=== PATIENT | male | born 1965 | race Caucasian/White ===

== ENCOUNTER 2016-12-11 09:22 | Inpatient (IN) | payer OTHER ==
[~2016-12-11] VITALS: Ht 180.3 cm; Wt 110.4 kg
--- NOTE | ~2016-12-11 | DS ---
Discharge Summary [facility] [address] [facility] [place]. [address] NAME: DAYSI DICKEY : 65 STATUS : DIS IN PAT#: [id number] AGE: 51 ADM/REG DATE : 12/11/16 MR#: [id number] REPORT SERV DATE: 12/16/16 DICTATED BY: CATHIE CESPEDES DATE: 12/16/16 REPORT STATUS : Draft TRANSCRIBED BY: MODL DATE: 12/16/16 ADMISSION DATE: 12/11/2016 DISCHARGE DATE: 12/16/2016 CONDITION ON DISCHARGE: Stable. DISPOSITION: Discharged to home. ADVICE ON DISCHARGE: To follow up with Dr. Gould within the next one to two weeks. DIAGNOSES ON DISCHARGE: 1. Submandibular abscess more towards the right side in the submandibular area in the sublingual area, status post incision and drainage, status post drain placement and subsequent removal of drain by Dr. Gould, the oral surgeon. 2. Poor dentition and poor oral hygiene with multiple dental caries, mostly secondary to tobacco abuse too - the patient has been advised to quit smoking. I have offered him nicotine patch, but the patient refuses nicotine patch, saying that he has no money to buy the nicotine patch at this time. 3. Other diagnoses in this patient also include type 2 diabetes mellitus and hypertension. BRIEF HOSPITAL COURSE: The patient is a 51-year-old male patient who was admitted with difficulty swallowing and severe pain, swelling, redness in the right side of the face and also in the submandibular area. The patient was admitted and given supportive treatment with IV fluids and started on IV antibiotics. As the patient is allergic to penicillin, he was started on IV Cleocin. Oral surgeon, Dr. Gould, was consulted. Dr. Gould performed an incision and drainage of the submandibular abscess and left the drain in place for about 24 to 48 hours before removing it. The patient has been doing well since. He continues to complain of another tooth that is bothering him on the right side, but this could be followed up as an outpatient per Dr. Gould. The patient will continue, however, to be on oral antibiotics. To keep the swelling down and to help him swallow, the patient has also been given pHisoHex mouthwash or Peridex mouthwash and also given Levaquin, and in addition to that, prednisone. Hence, the patient will be discharged home on tapering dose of prednisone, Levaquin for another week, Peridex mouthwash and advised to stop smoking. The patient wanted a prescription for Percocet pills and he states that he has a high tolerance for pain and request these particular medicines. I have given him a prescription for Percocet 5/325 one p.o. t.i.d. p.r.n. for severe pain only, #21 only, and no more. The patient is to follow up with Dr. Gould as an outpatient within the next one to two weeks. The most recent results I have on this gentleman is surgical culture of the wound that is showing growth in broth only of agglutination-negative Staphylococcus. Other than that, his CBC shows a WBC count of 20.6. Most likely, the leukocytosis is secondary to the prednisone and the Solu-Medrol that he received to decrease the swelling. This is because the patient Discharge Summary [address] [address] NAME: DAYSI DICKEY : 65 STATUS : DIS IN PAT#: [id number] AGE: 51 ADM/REG DATE : 12/11/16 MR#: [id number] REPORT SERV DATE: 12/16/16 DICTATED BY: CATHIE CESPEDES DATE: 12/16/16 REPORT STATUS : Draft TRANSCRIBED BY: BELA DATE: 12/16/16 does not appear toxic. He is afebrile and he is able to swallow, eat his regular food, and is clinically well and ambulatory. His hemoglobin and hematocrit are normal at 16.9 and 49.4, and platelet is normal at 175. Electrolyte profile shows normal electrolytes, normal BUN and creatinine. Blood glucose levels have come back high, partly because of the infection and also partly because of the steroid use to reduce the swelling. He will continue his home medications for this, however. The patient is being sent home on above medications including Levaquin for seven days; prednisone 20 mg a day for two days, 15 mg a day for two days, 10 mg a day for two days, 5 mg a day for two days, and then stop; Peridex mouthwash as mentioned above; and Percocet 5/325 one p.o. t.i.d. p.r.n. for pain, #21. The patient will resume Prinivil 20 mg p.o. b.i.d., aspirin 81 mg once a day, Glucophage 500 mg p.o. b.i.d., Neurontin 800 mg p.o. t.i.d., Novolin N 25 units subcutaneously every morning, NPH insulin 20 units at bedtime, HCTZ 25 mg once a day, metoprolol tartrate 50 mg p.o. b.i.d., Mevacor 40 mg p.o. q.h.s., and also his fish oil capsules. Hence, he is being discharged home in stable condition and I have spent about 35 to 40 minutes in coordinating discharge care of this patient including [id number] encounter and summarizing this discharge. RRA/BELA Cathie Cespedes M.D. / [id number] CC: Martha Short JOY A
--- NOTE | ~2016-12-11 | OP ---
Record Of Operation [facility] [address] [place]. [address] NAME: DAYSI DICKEY : 65 STATUS : ADM IN [facility]#: [id number] AGE: 51 ADM/REG DATE : 12/11/16 MR#: [id number] REPORT SERV DATE: 12/13/16 DICTATED BY: SANGEETHA ISBELL DATE: 12/12/16 REPORT STATUS : Draft TRANSCRIBED BY: MODL DATE: 12/12/16 DATE OF PROCEDURE: 12/12/2016 PREOPERATIVE DIAGNOSES: 1. Right facial cellulitis. 2. Carious teeth. POSTOPERATIVE DIAGNOSES: 1. Right facial cellulitis. 2. Carious teeth. PROCEDURES PERFORMED: 1. Incision and drainage of right submandibular space. 2. Incision and drainage of right sublingual space. 3. Extraction of teeth numbers #29 and #31. INDICATIONS: This is a 51-year-old male who was admitted to the hospitalist service two days ago and Oral Surgery Service was consulted for definitive treatment. PROCEDURE PERFORMED: After informed consent was given, the patient was taken to the [facility] where he underwent a general anesthetic via oral tracheal intubation. The patient was prepped and draped in a normal sterile fashion. For procedure of this type, approximately 10 mL of 0.5% Marcaine with 1:200,000 epinephrine was injected into the right posterior mandible as well as the right neck skin crease. A #15 blade was used to make an incision in a right neck skin crease. Dissection was carried out through this incision with hemostats where a moderate amount of purulent material was expressed. This material was cultured for Gram stain, aerobic and anaerobic cultures. This hemostat was then carried into the oral cavity through the sublingual space and a half-inch [place] drain was picked up and dragged back out through the neck incision. This [place] drain was then secured with 3-0 silk suture. The incision and drainage were also carried out at the submandibular space as well as the vestibular space. Teeth numbers #29 and #31 were extracted. Copious irrigation was used in the flap. An orogastric tube was placed in the stomach and removed to avoid any stomach contents. A moist large gauze was placed in the right side of the oral cavity. The patient was extubated in the operating room and taken to recovery room in stable condition. TALYA/MODL Sangeetha Isbell D.D.SKhushbu / [id number] CC: Manny Ventura M.D.
--- NOTE | ~2016-12-11 | HP ---
History And Physical [address] [place]. [address] NAME: DAYSI DICKEY : 65 STATUS : ADM IN [facility]#: [id number] AGE: 51 ADM/REG DATE : 12/11/16 MR#: [id number] REPORT SERV DATE: 12/11/16 DICTATED BY: MANNY VENTURA DATE: 12/11/16 REPORT STATUS : Draft TRANSCRIBED BY: BELA DATE: 12/11/16 DATE OF ADMISSION: 12/11/2016 CHIEF COMPLAINT: Pain in the right side of the mouth. HISTORY OF PRESENT ILLNESS: The patient is a 51-year-old white male, who presented to [facility], where he woke up this morning with significant pain in his right side of the mouth. He says, his tooth has been bothering him for the last three to four days. He has been having some sweats, but no fevers and last night when he went to bed, it was hurting some, but this morning he could hardly move his jaw, so he had to activate EMS and he came to the emergency room. In the ER, he was found to have submandibular abscess, so he was transferred to [facility], which I do not recall why, but after being evaluated at [facility], this patient is transferred here for oral surgery to operate on him for the right submandibular abscess. This patient denies any nausea or vomiting. He denies any chest pain. He has had difficulty swallowing just mainly because of his pain. He denies any shortness of breath. He has not had any abdominal pain, diarrhea, or other constitutional symptoms except sweating. REVIEW OF SYSTEMS: A 10-point review of systems is otherwise negative. PAST MEDICAL HISTORY: Significant for type 2 diabetes mellitus and hypertension. PAST SURGICAL HISTORY: Significant for right wrist surgery due to traumatic injury and left hip surgery due to traumatic injury in the past. ALLERGIES: ALLERGIES TO PENICILLIN. HOME MEDICATIONS: Include insulin, which the patient is unable to recall, lisinopril, and another type of medication. SOCIAL HISTORY: This patient smokes one pack per day for thirty plus years. No use of alcohol. No use of drugs. FAMILY HISTORY: Father of lung cancer. Mother with diabetes and stroke. PHYSICAL EXAMINATION: GENERAL: White male, sitting on the bed, appears to be in no obvious respiratory distress. He is awake, alert, and he is oriented. VITAL SIGNS: Blood pressure 171/87, temp is 98.4, pulse is 94, sats are 94, pulse is 73. HEENT: Head is normocephalic, atraumatic. Pupils are equal, round, and reactive to light. Extraocular muscles are intact. Sclerae anicteric. Conjunctivae normal. Oropharynx, there is poor dentition with some purulent material in the right lower jaw. There is significant swelling of the right lower mandible with tenderness and warmth. No other lesions in the oropharynx are noted. NECK: Supple. No jugular venous distention. There is shotty lymphadenopathy in the right History And Physical [address] [address] NAME: DAYSI DICKEY : 65 STATUS : ADM IN [facility]#: [id number] AGE: 51 ADM/REG DATE : 12/11/16 MR#: [id number] REPORT SERV DATE: 12/11/16 DICTATED BY: MANNY VENTURA DATE: 12/11/16 REPORT STATUS : Draft TRANSCRIBED BY: BELA DATE: 12/11/16 side of the neck. No carotid bruits are noted. HEART: Regular rate and rhythm. No murmurs, rubs, or gallops are heard. PMI not displaced. LUNGS: Clear to auscultation both anteriorly and posteriorly without rales, rhonchi, wheezing, or consolidation. ABDOMEN: Soft, nontender, good bowel sounds. No rebound or guarding. No organomegaly. EXTREMITIES: Without cyanosis, clubbing, or edema. NEUROLOGICAL: He is normal. No lab work has been sent from any of the transferring facilities. IMPRESSION: 1. Right-sided submandibular abscess. 2. Type 2 diabetes mellitus. 3. Hypertension. PLAN: The patient will be admitted. We will consult Oral Maxillofacial Surgery Dr. Gould. Place the patient on IV clindamycin, use a sliding scale, use IV hydralazine for blood pressure management and review home medications when available. The patient remains a full code. VERONICA/BELA Manny Ventura M.D. / [id number] CC: Manny Ventura M.D.
[2016-12-11] MEDS ORDERED: PRIN20 PO (17:27)
[2016-12-11] MEDS ORDERED: NOVOLIN N ×2 (17:29→17:31)
[2016-12-11] MEDS ORDERED: ASAB PO (17:29)
[2016-12-11] MEDS ORDERED: *UNABLE1 (17:30)
[2016-12-11] MEDS ORDERED: GLUCPH PO (17:34)
[2016-12-11] MEDS ORDERED: NEUR800 PO (19:02)
[2016-12-12 06:27] LABS: BASOPHILS 0.1 %; BASOPHILS ABSOLUTE 0.01 10/3/uL (0.0-0.16); EOSINOPHILS 0 %; HEMATOCRIT 44.4 % (40.0-51.0); HEMOGLOBIN 15.3 g/dL (13.6-17.8); IMMATURE GRANULOCYTES 0.3 %; IMMATURE GRANULOCYTES ABSOLUTE 0.04 10/3/uL (0.0-0.11); LYMPHOCYTES 5.2 %; LYMPHOCYTES ABSOLUTE 0.77 10/3/uL (0.67-4.30); MEAN CORPUS HGB CONC 34.5 g/dL (32.0-36.0); MEAN CORPUSCULAR HEMOGLOB 31.4 pg (26.0-34.0); MEAN PLATELET VOLUME 12.7 fL (9.2-13.0); MONOCYTES 11.2 %; MONOCYTES ABSOLUTE 1.66 10/3/uL (0.21-1.20); NEUTROPHILS 83.2 %; NEUTROPHILS ABSOLUTE 12.34 10/3/uL (2.02-8.40); PLATELET COUNT 95 10/3/uL (150-400); RBC DISTRIBUTION WIDTH 12.6 % (12.0-16.0); RED CELL COUNT 4.88 10/6/uL (4.7-6.1); WHITE BLOOD CELLS 14.8 10/3/uL (4.5-10.5)
[2016-12-12 06:30] LABS: MANUAL DIFF NO %
[2016-12-12 06:46] LABS: ALBUMIN 3.2 G/DL (3.5-5.0); BUN (BLOOD UREA NITROGEN) 14 MG/DL (6-23); CALCIUM, SERUM 8.7 MG/DL (8.5-10.4); CHLORIDE, SERUM 101 MMOL/L (96-112); CO2 (CARBON DIOXIDE) 26 MMOL/L (24-34); CREATININE 0.64 MG/DL (0.70-1.30); GFR AFRICAN AMERICAN 131 ML/MIN (>=60); GFR NON AFRICAN AMERICAN 113 ML/MIN (>=60); GLUCOSE, SERUM 198 MG/DL (60-99); POTASSIUM, SERUM 4.1 MMOL/L (3.5-5.3); SODIUM, SERUM 135 MMOL/L (135-148)
[2016-12-12] MEDS ORDERED: INSNOVN SC (12:22)
[2016-12-12] MEDS ORDERED: HUMULIN N1 ML SC (12:22)
[2016-12-12] MEDS ORDERED: HUMULIN R1 ML SC (12:25)
[2016-12-12] MEDS ORDERED: HCTZ25B PO (12:26)
[2016-12-12] MEDS ORDERED: LOP50 PO (12:26)
[2016-12-12] MEDS ORDERED: MEVACOR40 MG PO (12:27)
[2016-12-12] MEDS ORDERED: FISH-EPA1000 MG PO (12:27)
[2016-12-13 05:13] LABS: BASOPHILS 0 %; EOSINOPHILS 0 %; HEMATOCRIT 43.3 % (40.0-51.0); HEMOGLOBIN 14.3 g/dL (13.6-17.8); IMMATURE GRANULOCYTES 0.5 %; IMMATURE GRANULOCYTES ABSOLUTE 0.08 10/3/uL (0.0-0.11); LYMPHOCYTES 4.5 %; LYMPHOCYTES ABSOLUTE 0.77 10/3/uL (0.67-4.30); MEAN CORPUSCULAR HEMOGLOB 30.6 pg (26.0-34.0); MEAN CORPUSCULAR VOLUME 92.5 fL (80-100); MEAN PLATELET VOLUME 13.2 fL (9.2-13.0); MONOCYTES 6.3 %; MONOCYTES ABSOLUTE 1.07 10/3/uL (0.21-1.20); NEUTROPHILS 88.7 %; NEUTROPHILS ABSOLUTE 15.03 10/3/uL (2.02-8.40); PLATELET COUNT 106 10/3/uL (150-400); RBC DISTRIBUTION WIDTH 13.1 % (12.0-16.0); RED CELL COUNT 4.68 10/6/uL (4.7-6.1)
[2016-12-13 05:15] LABS: MANUAL DIFF NO %
[2016-12-13 05:21] LABS: BUN (BLOOD UREA NITROGEN) 17 MG/DL (6-23); CALCIUM, SERUM 8.4 MG/DL (8.5-10.4); CHLORIDE, SERUM 101 MMOL/L (96-112); CO2 (CARBON DIOXIDE) 29 MMOL/L (24-34); CREATININE 1.02 MG/DL (0.70-1.30); GFR AFRICAN AMERICAN 98 ML/MIN (>=60); GFR NON AFRICAN AMERICAN 85 ML/MIN (>=60); PHOSPHORUS, SERUM 2.6 MG/DL (2.5-4.5); SODIUM, SERUM 136 MMOL/L (135-148)
[2016-12-13 05:23] LABS: GLUCOSE, SERUM 243 MG/DL (60-99); POTASSIUM, SERUM 5.1 MMOL/L (3.5-5.3)
[2016-12-14 06:39] LABS: BASOPHILS 0.1 %; BASOPHILS ABSOLUTE 0.01 10/3/uL (0.0-0.16); EOSINOPHILS 0.1 %; EOSINOPHILS ABSOLUTE 0.02 10/3/uL (0.0-0.53); HEMATOCRIT 43.5 % (40.0-51.0); HEMOGLOBIN 14.7 g/dL (13.6-17.8); IMMATURE GRANULOCYTES 0.4 %; IMMATURE GRANULOCYTES ABSOLUTE 0.08 10/3/uL (0.0-0.11); LYMPHOCYTES 9.7 %; LYMPHOCYTES ABSOLUTE 1.86 10/3/uL (0.67-4.30); MEAN CORPUS HGB CONC 33.8 g/dL (32.0-36.0); MEAN CORPUSCULAR HEMOGLOB 30.8 pg (26.0-34.0); MEAN CORPUSCULAR VOLUME 91.2 fL (80-100); MEAN PLATELET VOLUME 12.8 fL (9.2-13.0); MONOCYTES 11.1 %; MONOCYTES ABSOLUTE 2.13 10/3/uL (0.21-1.20); NEUTROPHILS 78.6 %; NEUTROPHILS ABSOLUTE 15.07 10/3/uL (2.02-8.40); PLATELET COUNT 112 10/3/uL (150-400); RBC DISTRIBUTION WIDTH 12.9 % (12.0-16.0); RED CELL COUNT 4.77 10/6/uL (4.7-6.1); WHITE BLOOD CELLS 19.2 10/3/uL (4.5-10.5)
[2016-12-14 06:40] LABS: MANUAL DIFF NO %
[2016-12-14 06:50] LABS: BUN (BLOOD UREA NITROGEN) 17 MG/DL (6-23); CALCIUM, SERUM 8.6 MG/DL (8.5-10.4); CHLORIDE, SERUM 101 MMOL/L (96-112); CO2 (CARBON DIOXIDE) 29 MMOL/L (24-34); CREATININE 0.65 MG/DL (0.70-1.30); GFR AFRICAN AMERICAN 131 ML/MIN (>=60); GFR NON AFRICAN AMERICAN 113 ML/MIN (>=60); GLUCOSE, SERUM 98 MG/DL (60-99); POTASSIUM, SERUM 3.7 MMOL/L (3.5-5.3); SODIUM, SERUM 136 MMOL/L (135-148)
[2016-12-15 05:35] LABS: BASOPHILS 0.1 %; BASOPHILS ABSOLUTE 0.01 10/3/uL (0.0-0.16); EOSINOPHILS 0 %; HEMATOCRIT 43.8 % (40.0-51.0); HEMOGLOBIN 14.8 g/dL (13.6-17.8); IMMATURE GRANULOCYTES 0.5 %; IMMATURE GRANULOCYTES ABSOLUTE 0.07 10/3/uL (0.0-0.11); LYMPHOCYTES 5.8 %; LYMPHOCYTES ABSOLUTE 0.87 10/3/uL (0.67-4.30); MEAN CORPUS HGB CONC 33.8 g/dL (32.0-36.0); MEAN CORPUSCULAR HEMOGLOB 30.6 pg (26.0-34.0); MEAN CORPUSCULAR VOLUME 90.7 fL (80-100); MEAN PLATELET VOLUME 12.6 fL (9.2-13.0); MONOCYTES 5.6 %; MONOCYTES ABSOLUTE 0.85 10/3/uL (0.21-1.20); NEUTROPHILS ABSOLUTE 13.26 10/3/uL (2.02-8.40); PLATELET COUNT 129 10/3/uL (150-400); RBC DISTRIBUTION WIDTH 12.7 % (12.0-16.0); RED CELL COUNT 4.83 10/6/uL (4.7-6.1); WHITE BLOOD CELLS 15.1 10/3/uL (4.5-10.5)
[2016-12-15 05:36] LABS: MANUAL DIFF NO %
[2016-12-15 05:47] LABS: BUN (BLOOD UREA NITROGEN) 15 MG/DL (6-23); CALCIUM, SERUM 9.2 MG/DL (8.5-10.4); CHLORIDE, SERUM 96 MMOL/L (96-112); CO2 (CARBON DIOXIDE) 30 MMOL/L (24-34); CREATININE 0.67 MG/DL (0.70-1.30); GFR AFRICAN AMERICAN 129 ML/MIN (>=60); GFR NON AFRICAN AMERICAN 111 ML/MIN (>=60); GLUCOSE, SERUM 246 MG/DL (60-99); SODIUM, SERUM 133 MMOL/L (135-148)
[2016-12-16 06:46] LABS: HEMOGLOBIN 16.9 g/dL (13.6-17.8); MEAN CORPUS HGB CONC 34.2 g/dL (32.0-36.0); MEAN CORPUSCULAR HEMOGLOB 31.2 pg (26.0-34.0); MEAN CORPUSCULAR VOLUME 91.3 fL (80-100); MEAN PLATELET VOLUME 12.6 fL (9.2-13.0); RBC DISTRIBUTION WIDTH 12.7 % (12.0-16.0); RED CELL COUNT 5.41 10/6/uL (4.7-6.1); WHITE BLOOD CELLS 20.6 10/3/uL (4.5-10.5)
[2016-12-16 06:47] LABS: HEMATOCRIT 49.4 % (40.0-51.0); MANUAL DIFF YES %; PLATELET COUNT 175 10/3/uL (150-400)
[2016-12-16 06:53] LABS: BUN (BLOOD UREA NITROGEN) 17 MG/DL (6-23); CALCIUM, SERUM 9.7 MG/DL (8.5-10.4); CHLORIDE, SERUM 97 MMOL/L (96-112); CO2 (CARBON DIOXIDE) 30 MMOL/L (24-34); CREATININE 0.88 MG/DL (0.70-1.30); GFR AFRICAN AMERICAN 115 ML/MIN (>=60); GFR NON AFRICAN AMERICAN 99 ML/MIN (>=60); GLUCOSE, SERUM 179 MG/DL (60-99); SODIUM, SERUM 135 MMOL/L (135-148)
[2016-12-16 07:12] LABS: BAND NEUTROPHILS 5 %; LYMPHOCYTES 12 %; LYMPHOCYTES ABSOLUTE (CALC) 2.47 10/3/uL (0.67-4.30); MONOCYTES 6 %; MONOCYTES ABSOLUTE (CALC) 1.24 10/3/uL (0.21-1.20); NEUTROPHILS ABSOLUTE (CALC) 16.89 10/3/uL (2.02-8.40); PLATELET ESTIMATE ADQ (ADEQUATE); SEGMENTED NEUTROPHIL (0) 77 %; TOTAL NUCLEATED CELLS 100
[2016-12-16 07:13] LABS: RBC MORPHOLOGY NORM (NORMAL)
[2016-12-16] MEDS ORDERED: P10 PO (12:00)
[2016-12-16] MEDS ORDERED: PERIDEX PO (12:03)
[2016-12-16] MEDS ORDERED: LEVAQUIN750 MG PO (12:03)
[2016-12-16] MEDS ORDERED: PCET PO (12:04)
== END 2016-12-16 19:31 | disposition home or self-care (01) | DRG 138 ==
LOC: ENRESERVTM → ENRESERV → ENRESERVDT → 4SO 10:04 → ENPENDDIS 10:04 → 4SO 12-14 21:22
PROVIDERS: Internal Medicine
PROC: 0W950ZZ Drainage of Lower Jaw, Open Approach (ICD-10-PCS; principal; 2016-12-11)
PROC: 0C9 Mouth and Throat, Drainage (ICD-10-PCS; 2016-12-11)
PROC: 0C9 Mouth and Throat, Drainage (ICD-10-PCS; 2016-12-11)
PROC: 0CDXXZ1 Extraction of Lower Tooth, Multiple, External Approach (ICD-10-PCS; 2016-12-11)
DX: K12.2 Cellulitis and abscess of mouth (principal); E11.40 Type 2 diabetes mellitus with diabetic neuropathy, unspecified; I10 Essential (primary) hypertension; F17.210 Nicotine dependence, cigarettes, uncomplicated; E78.5 Hyperlipidemia, unspecified
CPT/HCPCS: 80048; 80069; 82962; 85025; 87015; 87070; 87075; 87102; 87116; 87205; 93005; A9270-GY; J0360; J1170; J2250; J2370; J2405; J2920; J3010